=== PATIENT | male | born 1995 | race Caucasian/White ===

== ENCOUNTER 2017-12-10 03:55 | Outpatient (CLI) | payer SELFPAY | END 2017-12-10 03:56 | disposition critical access hospital (66) | LOC: EMS 03:55 | PROVIDERS: ATTEND Surgery | DX: R41.82 Altered mental status, unspecified (principal); R11.10 Vomiting, unspecified | CPT/HCPCS: A0425; A0429 ==

== ENCOUNTER 2017-12-10 04:16 | Emergency (ER) | payer SELFPAY ==
--- NOTE | 2017-12-10 04:56 | ED Physician Documentation ---
History of Present Illness - Stated complaint Stated Complaint: INGESTION NAUSEA/AMS - Chief complaint Chief Complaint: Neuro - History obtained from History obtained from: Patient, Family, EMS - History of Present Illness Timing: Prior to arrival Pain level now: 0 - Additonal information Additional information: BIBA for AMS; patient reports taking marijuana in capsule form earlier tonight. denies drinking alcohol and denies other drug use. Review of Systems Cardiac: reports: Reviewed and negative Respiratory: reports: Reviewed and negative GI: reports: Nausea, Vomiting. denies: Abdominal Pain Neurologic: reports: Altered mental status. denies: Headache, Head injury PD PAST MEDICAL HISTORY - Past Medical History Past Medical History: No - Past Surgical History Past Surgical History: No - Present Medications Home Medications: Ambulatory Orders Medication Instructions Recorded Confirmed Ondansetron Odt [Zofran] 4 mg TL Q6H PRN #10 tablet 12/10/17 - Allergies Allergies/Adverse Reactions: Allergies Allergy/AdvReac Type Severity Reaction Status Date / Time peanut Allergy Unknown Verified 12/10/17 04:26 - Social History Does the pt smoke?: No Smoking Status: Never smoker - Immunizations Immunizations are current?: No Immunizations: TDAP >10years/unknown PD ED PE NORMAL - Vitals Vital signs reviewed: Yes - General General: No acute distress, Well developed/nourished, Other (asleep, awakens to verbal with gentle tactile stimuli, answers quietly but appropriately) - Neck Neck: Supple, no meningeal sign - Cardiac Cardiac: RRR, No murmur - Respiratory Respiratory: No respiratory distress, Clear bilaterally - Abdomen Abdomen: Soft, Non tender - Derm Derm: Normal color, Warm and dry - Neuro 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, No motor deficit, No sensory deficit Eye Opening: To Voice Motor: Obeys Commands Verbal: Oriented GCS Score: 14 Results - Vitals Vitals: Vital Signs - 24 hr 12/10/17 12/10/17 12/10/17 04:22 06:27 07:44 Temperature 36.2 C L Heart Rate 85 70 84 Respiratory 23 18 16 Rate Blood Pressure 129/93 H 108/67 107/73 O2 Saturation 100 100 97 Oxygen O2 Source Room air - Labs Labs: Laboratory Tests 12/10/17 12/10/17 05:45 05:45 WBC 22.2 H RBC 4.55 L Hgb 14.9 Hct 43.8 MCV 96.4 H MCH 32.8 H MCHC 34.0 RDW 13.4 Plt Count 266 MPV 7.2 L Neut # (Auto) Not Reportable Lymph # (Auto) Not Reportable [place] # (Auto) Not Reportable Eos # (Auto) Not Reportable Baso # (Auto) Not Reportable Absolute Nucleated RBC Not Reportable Total Counted 100 Band Neuts % (Manual) 4 Abnorm Lymph % (Manual) 0 Nucleated RBC % Not Reportable Neutrophils # (Manual) 18.9 H Lymphocytes # (Manual) 1.6 Monocytes # (Manual) 1.6 H Eosinophils # (Manual) 0.0 Basophils # (Manual) 0.2 H Differential Comment MANUAL DIFFERENTIAL Platelet Estimate NORMAL (130-450,000) RBC Morph Micro Appear NORMAL APPEARANCE Sodium 139 Potassium 4.1 Chloride 107 Carbon Dioxide 25 Anion Gap 7.0 BUN 13 Creatinine 1.0 Estimated GFR (MDRD) 94 Glucose 117 H Calcium 9.2 PD MEDICAL DECISION MAKING - ED course Complexity details: reviewed results, re-evaluated patient, considered differential, d/w patient, d/w family - Sepsis Event Vital Signs: Vital Signs - 24 hr 12/10/17 12/10/17 12/10/17 04:22 06:27 07:44 Temperature 36.2 C L Heart Rate 85 70 84 Respiratory 23 18 16 Rate Blood Pressure 129/93 H 108/67 107/73 O2 Saturation 100 100 97 Oxygen O2 Source Room air Departure - Departure Disposition: 01 Home, Self Care Clinical Impression: Marijuana intoxication Qualifiers: Complication of substance-induced condition: uncomplicated Qualified Code(s): F12.920 - Cannabis use, unspecified with intoxication, uncomplicated Condition: Good Instructions: ED Marijuana Abuse Prescriptions: Ondansetron Odt [Zofran] 4 mg TL Q6H PRN #10 tablet PRN Reason: Nausea / Vomiting Discharge Date/Time: 12/10/17 07:51
[2017-12-10 05:59] LABS: BASOPHILS % (AUTO) 0.3 %; EOSINOPHILS % (AUTO) 0.1 %; HGB - HEMOGLOBIN 14.9 g/dL (14.0-18.0); LYMPHOCYTES % (AUTO) 5.8 %; MEAN CORPUSCULAR HEMOGLOBIN 32.8 pg (27.0-31.0); MEAN CORPUSCULAR VOLUME 96.4 fL (80.0-94.0); MEAN PLATELET VOLUME 7.2 fL (7.4-11.4); MONOCYTES % (AUTO) 4.8 %; PLT - PLATELET COUNT 266 10^3/uL (130-450); RED BLOOD COUNT 4.55 10^6/uL (4.70-6.10); RED CELL DISTRIBUTION WIDTH 13.4 % (12.0-15.0); WHITE BLOOD COUNT 22.2 x10^3/uL (4.8-10.8)
[2017-12-10 06:02] LABS: ABNORMAL LYMPHS % (MANUAL) 0 %; CALCIUM 9.2 mg/dL (8.5-10.3)
[2017-12-10 07:24] LABS: BAND NEUTROPHILS % (MANUAL) 4 %; BASOPHILS # (MANUAL) 0.2 10^3/uL (0-0.1); BASOPHILS % (MANUAL) 1 %; DIFFERENTIAL COMMENT MANUAL DIFFERENTIAL; LYMPHOCYTES # (MANUAL) 1.6 10^3/uL (1.5-3.5); LYMPHOCYTES % (MANUAL) 7 %; MONOCYTES # (MANUAL) 1.6 10^3/uL (0.0-1.0); NEUTROPHILS # (MANUAL) 18.9 10^3/uL (1.5-6.6); NEUTROPHILS % (MANUAL) 81 %; PLATELET ESTIMATE, MANUAL NORMAL (130-450,000) (NORMAL); RBC MORPHOLOGY (MULTIPLE) NORMAL APPEARANCE (NORMAL)
[2017-12-10] MEDS ORDERED: ONDANSETRON 4 MG/2 ML VIAL IVP STA (07:39)
[2017-12-10 07:45] VITALS: BP 107/73
== END 2017-12-10 07:51 | disposition home or self-care (01) ==
LOC: EDSEX → ED 04:16
DX: F12.920 Cannabis use, unspecified with intoxication, uncomplicated (principal)
CPT/HCPCS: 36415; 80048; 85025; 96374; 99283

== ENCOUNTER 2020-01-31 02:22 | Emergency (ER) | payer SELFPAY ==
--- NOTE | 2020-01-31 03:09 | ED Physician Documentation ---
PD HPI MALE - Stated complaint Stated Complaint: MALE - Chief complaint Chief Complaint: General - History obtained from History obtained from: Patient - History of Present Illness Timing - onset: How many months ago (1) Timing - duration: Months (1) Timing - details: Gradual onset, Still present Associated symptoms: Genital sore / lesion. No: Dysuria, Hematuria, Discharge, Testiclar pain, Scrotal swelling, Back pain, Unable retract foreskin, Unable replace foreskin PD HPI MALE CONTRIB FACTORS: Sexually active Similar symptoms before: Has not had sx before Recently seen: Clinic - Additional information Additional information: 24-year-old male who is uncircumcised has developed an area in the fold of the foreskin of some increased keratinization of the skin and he has been placed on some Chlortrimazole for treatment. He has been using this twice per day for the past month and he has been using fastidious cleaning. He had some improvement and then it is just not getting any better. He is sexually active and he is using condoms now and he denies any discharge or pain in his testicles sores elsewhere or other symptoms. Review of Systems Constitutional: denies: Fever Eyes: denies: Decreased vision Ears: denies: Ear pain Nose: denies: Congestion Throat: denies: Sore throat Cardiac: denies: Chest pain / pressure Respiratory: denies: Dyspnea, Cough GI: denies: Abdominal Pain, Nausea, Vomiting, Constipation, Diarrhea : denies: Dysuria, Frequency PD PAST MEDICAL HISTORY - Past Medical History Past Medical History: No - Past Surgical History Past Surgical History: No - Present Medications Home Medications: Ambulatory Orders Medication Instructions Recorded Confirmed Ondansetron Odt [Zofran] 4 mg TL Q6H PRN #10 tablet 12/10/17 - Allergies Allergies/Adverse Reactions: Allergies Allergy/AdvReac Type Severity Reaction Status Date / Time peanut Allergy Unknown Verified 01/31/20 02:42 - Social History Does the pt smoke?: No Smoking Status: Never smoker - Immunizations Immunizations are current?: No Immunizations: TDAP >10years/unknown PD ED PE NORMAL - Vitals Vital signs reviewed: Yes (hypertensive ) - General General: Alert and oriented X 3, No acute distress, Well developed/nourished - HEENT HEENT: Atraumatic, PERRL, EOMI - Respiratory Respiratory: No respiratory distress - Male Male : Other (Uncircumcised male with a single testicleExamination of the fold of the foreskin on the right side shows a 1 cm patch of skin which is shiny and not pigmented. Similar to versicolor.) - Derm Derm: Normal color, Warm and dry, No rash - Extremities Extremities: No deformity, No edema - Neuro Neuro: Alert and oriented X 3, guard driver 2-12 intact, No motor deficit, No sensory deficit, Normal speech Eye Opening: Spontaneous Motor: Obeys Commands Verbal: Oriented GCS Score: 15 - Psych Psych: Normal mood, Normal affect Results - Vitals Vitals: Vital Signs - 24 hr 01/31/20 02:37 Temperature 37.5 C Heart Rate 100 Respiratory 18 Rate Blood Pressure 154/102 H O2 Saturation 97 Oxygen O2 Source Room air PD MEDICAL DECISION MAKING - ED course Complexity details: considered differential, d/w patient ED course: 24-year-old male with what appears to be tinea crura's were a form of it has failed treatment with an Azole and we will use an Allylamine. Departure - Departure Disposition: 01 Home, Self Care Clinical Impression: Tinea cruris Condition: Stable Instructions: ED Infec Skin Fungal Tinea Follow-Up: [facility] [Provider Group] Comments: This looks like a dermatophyte infection, an infection with a fungal element that will get into a layer of skin that you cannot just wash off. Having failed treatment with the clotrimazole the next step is to use a different class of anti-fungal. Lamisil is recommended and topically it is available over the counter as a cream 1%. (Lamisil AT [facility]) Use this twice per day and expect to get results in several days and be resolved within 2 weeks.
[2020-01-31 03:34] VITALS: BP 152/91
== END 2020-01-31 03:34 | disposition home or self-care (01) ==
LOC: ED 02:22
DX: B35.6 Tinea cruris (principal)
CPT/HCPCS: 99281; 99282